=== PATIENT | female | born 1955 | race Caucasian/White ===

== ENCOUNTER → 2024-11-05 | Outpatient (CLI) | payer MEDICARE, BC, SELFPAY ==
--- NOTE | 2024-11-05 15:04 | XR_ITS ---
Examination: Foot, right, 3 views Technique: AP, oblique, lateral views foot, 3 views Date and time of exam: 2024 1511 hours INDICATIONS: Foot pain in the metatarsal region one month FINDINGS: Subacute healing fracture proximal to mid second metatarsal shaft without significant displacement Bony callus noted IMPRESSION: Subacute healing fractures second metatarsal
== END | disposition home or self-care (01) ==
LOC: CDIM 14:57
PROVIDERS: PCP Family Medicine; Referring Provider Registered Nurse; Visit Provider Registered Nurse
DX: S92.321A Displaced fracture of second metatarsal bone, right foot, initial encounter for closed fracture (principal); X58.XXXA Exposure to other specified factors, initial encounter; M25.774 Osteophyte, right foot
CPT/HCPCS: 73630